=== PATIENT | male | born 1980 | race Two or more races ===

== ENCOUNTER 2021-04-09 21:13 | Emergency (ER) | payer BC ==
[~2021-04-09] VITALS: Ht 177.8 cm; Wt 118.2 kg
[2021-04-09 21:24] VITALS: BP 138/88
[2021-04-09 21:26] LABS: COVID AG,FIA SOURCE NASOPHARYNGEAL
== END 2021-04-09 22:03 | disposition home or self-care (01) ==
LOC: EMS 21:15
DX: Z20.822 Contact with and (suspected) exposure to COVID-19 (principal)
CPT/HCPCS: 99283